=== PATIENT | male | born 1940 | race Caucasian/White ===

== ENCOUNTER 2016-12-04 20:13 | Inpatient (IN) | payer MEDICARE, OTHER ==
[~2016-12-04 20:13] MED LIST: AMBIEN5 M1 PO; ASPIR-LOW81 MG PO; ATORVASTATIN CA20 M1 PO; ATORVASTATIN CA20 MG PO; AZITHROMYCIN250 MG PO; BENZONATATE200 M1 PO; CALCIUM 600 +1 EAC6 PO; CALCIUM WITH VI1 TAB PO; CENTRUM SILVER1 EAC3 PO; CLINDAMYCIN HC150 M1 PO; COREG25 M1 PO; COREG3.125 MG PO; COREG6.25 MG PO; COUMADIN2.5 MG PO; COUMADIN5 M1 PO; CPAP; DELTASONE10 MG PO; DOXYCYCLINE HY100 MG PO; DULCOLAX10 MG PR; ELIQUIS5 M1 PO; EVOXAC30 MG PO; FISH OIL 1,4001 EACH PO; FISH OIL OMEGA1 EAC2 PO; FISH OIL SOFTGE1 CA1 PO; FISH OIL SOFTGE1 CAP PO; FLUNISOLIDE25 M1; FLUNISOLIDE25 M3; FOLIC ACID0.8 M1 PO; FOLIC ACID1 MG PO; GLUCOSAMINE; GLUCOSAMINE-CH1 EA35 PO; GLUCOSAMINE500 MG PO; GUAIFENESIN400 M1 PO; HYTRIN10 MG PO; HYTRIN5 MG PO; IPRAT-ALBUT 0.5-3 ML INH; LASIX40 M1 PO; LASIX40 MG PO; LEVAQUIN750 MG PO; MACROBID100 MG/CA1 PO; MAGNESIUM OXID400 M1 PO; MAGNESIUM OXID500 MG PO; MILK OF MAGNESIA PO; MULTIVITAMIN1 TAB PO; OCUVITE EYE +1 EACH PO; OCUVITE LUTEIN1 CAP PO; PACERONE200 MG PO; POTASSIUM CHLO10 MEQ PO; POTASSIUM CHLO20 ME3 PO; ROXICODONE5 M2 PO; SALAGEN5 M1 PO; SENOKOT-S TABL1 EACH PO; SYMBICORT; SYMBICORT 80-41 PUFF INH; TERAZOSIN HCL10 M1 PO; ULTRAM50 M1 PO; VIT D-3; VITAMIN D31000 UNI3 PO; VITAMIN D31000 UNIT PO; XANAX0.25 M1 PO; XANAX0.25 MG PO
[2016-12-04] MEDS ORDERED: INVANZ1 GM IV (20:58)
[2016-12-04 21:26] LABS: BASO % 0.1 % (0-2); EOSINOPHIL ABSOLUTE COUNT 0.1 tho/cmm (0.0-0.7); HCT-HEMATOCRIT 34.5 % (36.0-53.5); HGB-HEMOGLOBIN 11.4 gm/dl (13.5-17.0); IMMATURE GRANULOCYTES ABSOLUTE 0.01 tho/cmm (0-0.03); IMMATURE GRANULOCYTES PERCENT 0.1 % (0-0.3); LYMPH ABSOLUTE COUNT 0.7 tho/cmm (0.8-4.5); MCH (MEAN CORPUSCULAR HGB) 31.8 pg (28.0-32.0); MCV (MEAN CELL VOLUME) 96.4 fl (82.0-96.0); MEAN PLATELET VOLUME 9.9 cmc (9.4-12.4); MONO % 9.7 % (0-12); MONOCYTE ABSOLUTE COUNT 0.8 tho/cmm (0.0-1.2); NEUTROPHIL ABSOLUTE COUNT 6.5 tho/cmm (1.6-8.0); NEUTROPHIL-AUTOMATED 6.5 tho/cmm (1.6-8.0); NEUTROPHILS % 80.1 % (40-80); PLATELET COUNT 181 tho/cmm (150-450); RED BLOOD COUNT 3.58 mil/cmm (4.40-5.70); RED CELL DISTRIBUTION WIDTH 14.2 % (12.4-16.4); WHITE BLOOD COUNT 8.1 tho/cmm (4.0-10.0)
[2016-12-04 21:43] LABS: ALB/GLOB RATIO 0.7 (0.8-2.0); ALKALINE PHOSPHATASE 93 U/L (33-138); ALT/SGPT 19 U/L (12-78); ANION GAP 13 mmol/L (0-20); AST/SGOT 20 U/L (10-40); BILIRUBIN,TOTAL 0.6 mg/dl (0.0-1.5); BLOOD UREA NITROGEN 18 mg/dl (6-24); CARBON DIOXIDE-VENOUS 27 mmol/L (22-32); CHLORIDE 102 mmol/l (96-110); CREATININE 0.85 mg/dl (0.60-1.30); POTASSIUM 3.9 mmol/L (3.7-5.1); SODIUM 138 mmol/L (135-145); eGFR VALUE FOR BLACK >90 mL/Min
[2016-12-04 21:44] LABS: GLUCOSE 159 mg/dL (70-110)
[2016-12-04 22:27] LABS: URINE BILIRUBIN NEGATIVE (NEG); URINE BLOOD NEGATIVE (NEG); URINE GLUCOSE (UA) NEGATIVE (NEG); URINE KETONE NEGATIVE (NEG); URINE LEUKOCYTE ESTERASE NEGATIVE (NEG); URINE NITRITE NEGATIVE (NEG); URINE PH 6.5 (5.0-8.0); URINE PROTEIN MODERATE (NEG)
[2016-12-04 22:28] LABS: URINE APPEARANCE CLEAR; URINE COLOR YELLOW
[2016-12-04 22:34] LABS: URINE EPITHELIAL CELLS 0 /[HPF] (0-10); URINE RBC 0 /[HPF] (0-5); URINE WBC 0 /[HPF] (0-5)
[2016-12-05 06:39] LABS: BASO % 0.2 % (0-2); EOS % 1.6 % (0-7); EOSINOPHIL ABSOLUTE COUNT 0.1 tho/cmm (0.0-0.7); HCT-HEMATOCRIT 31.3 % (36.0-53.5); HGB-HEMOGLOBIN 10.3 gm/dl (13.5-17.0); IMMATURE GRANULOCYTES ABSOLUTE 0.02 tho/cmm (0-0.03); IMMATURE GRANULOCYTES PERCENT 0.4 % (0-0.3); LYMPH % 13.7 % (20-45); LYMPH ABSOLUTE COUNT 0.8 tho/cmm (0.8-4.5); MCH (MEAN CORPUSCULAR HGB) 31.8 pg (28.0-32.0); MCHC MEAN CORPUSCULAR HGB CONC 32.9 % (32.0-36.0); MCV (MEAN CELL VOLUME) 96.6 fl (82.0-96.0); MEAN PLATELET VOLUME 9.7 cmc (9.4-12.4); MONO % 15.7 % (0-12); MONOCYTE ABSOLUTE COUNT 0.9 tho/cmm (0.0-1.2); NEUTROPHIL ABSOLUTE COUNT 3.8 tho/cmm (1.6-8.0); NEUTROPHIL-AUTOMATED 3.8 tho/cmm (1.6-8.0); NEUTROPHILS % 68.4 % (40-80); PLATELET COUNT 167 tho/cmm (150-450); RED BLOOD COUNT 3.24 mil/cmm (4.40-5.70); RED CELL DISTRIBUTION WIDTH 14.2 % (12.4-16.4); WHITE BLOOD COUNT 5.5 tho/cmm (4.0-10.0)
[2016-12-05 06:49] LABS: ANION GAP 12 mmol/L (0-20); BLOOD UREA NITROGEN 13 mg/dl (6-24); CALCIUM 8.4 mg/dl (8.5-10.5); CARBON DIOXIDE-VENOUS 27 mmol/L (22-32); CHLORIDE 107 mmol/l (96-110); CREATININE 0.77 mg/dl (0.60-1.30); GLUCOSE 94 mg/dL (70-110); POTASSIUM 3.7 mmol/L (3.7-5.1); SODIUM 142 mmol/L (135-145); eGFR VALUE FOR BLACK >90 mL/Min
--- NOTE | 2016-12-05 13:53 | NUR ---
VIRTUAL CARE NOTE: CHECKED IN ON PT AT THIS TIME (8631). HE IS SLEEPING SOUNDLY WITH CPAP IN PLACE. NO FAMILY IN ROOM. DID NOT DISTURB. WILL CONTINUE TO MONITOR. ELECTRONIC CHART REVIEWED.
--- NOTE | 2016-12-05 21:43 | NUR ---
VIRTUAL CARE NOTE: PT. IS IN BED, STATES IS DOING OK, DENIES PAIN AND DOESN'T HAVE QUESTIONS AT THIS TIME. INSTRUCTED TO CALL FOR FURTHER NEEDS. STATES VERBAL AGREEMENT.
[2016-12-06] MEDS ORDERED: INVANZ1 GM IV (14:19)
[2016-12-06] MEDS ORDERED: TYLENOL325 M2 PO (14:23)
[2016-12-06] MEDS ORDERED: MIRALAX17 G2 PO (14:28)
--- NOTE | 2016-12-06 15:04 | NUR ---
VN DISCHARGE NOTE-REVIEWED THE HF DISMISSAL INSTRUCTIONS WITH PATIENT AND THE MEDICATIONS AND FOLLOW UP APPTS. WE ALSO REVIEWED THE INFUSIONS AT [facility] FOR THE ABX. PATIENT WAS ABLE TO REPEAT BACK INSTRUCTIONS AND HAD NO FURTHER QUESTIONS OR CONCERNS AT THIS TIME.
[2016-12-27] MEDS ORDERED: OXYGEN (16:56)
== END 2016-12-06 15:50 | DRG 392 ==
LOC: EDMED 20:13 → EMR2 12-05 00:23 → 5WD 12-05 01:00
PROVIDERS: Emergency Medicine; ADMIT Hospitalist
DX: K57.32 Diverticulitis of large intestine without perforation or abscess without bleeding (principal); J96.11 Chronic respiratory failure with hypoxia; T84.53XA Infection and inflammatory reaction due to internal right knee prosthesis, initial encounter; J44.9 Chronic obstructive pulmonary disease, unspecified; G47.33 Obstructive sleep apnea (adult) (pediatric); Z86.711 Personal history of pulmonary embolism; Z88.6 Allergy status to analgesic agent; Z88.0 Allergy status to penicillin; Z79.01 Long term (current) use of anticoagulants; Z79.899 Other long term (current) drug therapy; Z95.3 Presence of xenogenic heart valve; Y83.1 Surgical operation with implant of artificial internal device as the cause of abnormal reaction of the patient, or of later complication, without mention of misadventure at the time of the procedure
CPT/HCPCS: J1335; J2270; J2405; J7030; Q9967

== ENCOUNTER 2016-12-29 08:05 | Day surgery (SDC) | payer MEDICARE, OTHER ==
[~2016-12-29 08:05] MED LIST changes: +INVANZ1 GM IV; +MIRALAX17 G2 PO; +OXYGEN; +TYLENOL325 M2 PO
[2016-12-29] MEDS ORDERED: FEOSOL325 M1 PO (09:45)
== END 2016-12-29 13:40 ==
LOC: SHSB 08:05 → ORE 09:59 → PACU 10:36 → SHSB 12:05
PROC: 0HRKX74 Replacement of Right Lower Leg Skin with Autologous Tissue Substitute, Partial Thickness, External Approach (ICD-10-PCS; principal; 2016-12-29)
DX: T81.31XD Disruption of external operation (surgical) wound, not elsewhere classified, subsequent encounter (principal); I11.0 Hypertensive heart disease with heart failure; I50.42 Chronic combined systolic (congestive) and diastolic (congestive) heart failure; I25.10 Atherosclerotic heart disease of native coronary artery without angina pectoris; I48.0 Paroxysmal atrial fibrillation; M17.0 Bilateral primary osteoarthritis of knee; F41.9 Anxiety disorder, unspecified; H26.9 Unspecified cataract; J45.909 Unspecified asthma, uncomplicated; G47.33 Obstructive sleep apnea (adult) (pediatric); I27.2 Other secondary pulmonary hypertension; J44.9 Chronic obstructive pulmonary disease, unspecified; E78.5 Hyperlipidemia, unspecified; I48.3 Typical atrial flutter; Z79.899 Other long term (current) drug therapy; Z88.0 Allergy status to penicillin; Z88.8 Allergy status to other drugs, medicaments and biological substances; Z86.711 Personal history of pulmonary embolism; Z86.010 Personal history of colon polyps; Z87.891 Personal history of nicotine dependence; Z90.89 Acquired absence of other organs; Z95.1 Presence of aortocoronary bypass graft; Z95.3 Presence of xenogenic heart valve; Z96.651 Presence of right artificial knee joint; Z98.890 Other specified postprocedural states
CPT/HCPCS: J1170; J3010